=== PATIENT | male | born 2000 | race American Indian/Alaskan Native ===

== ENCOUNTER 2021-11-20 11:20 | Emergency (ER) | payer SELFPAY ==
[2021-11-20 11:37] VITALS: BP 152/79
[2021-11-20] MEDS ORDERED: oxyCODONE /ACETAMINOPHEN 5-325MG TAB PO ONE (16:46)
[2021-11-20] MEDS ORDERED: CLINDAMYCIN 300 MG CAP PO ONE (16:46)
[2021-11-20] MEDS ORDERED: SULFAMETHOXAZOLE/TRIMETHOPRIM 800/160MG DS TAB PO ONE (16:46)
[2021-11-20] MEDS ORDERED: ONDANSETRON 4 MG ODT TAB PO ONE (16:46)
[2021-11-20] MEDS ORDERED: IBUPROFEN 600 MG TAB PO ONE (16:46)
--- NOTE | 2021-11-20 19:06 | Emergency Department Report ---
ED General Adult HPI - General Chief complaint: Skin/Abscess/Foreign Body Stated complaint: RT BUTTOCKS BOIL Source: patient Mode of arrival: Ambulatory Limitations: No Limitations - History of Present Illness Initial comments: Patient is a 21-year-old -I[place] male with no past medical history who presents to the ED with complaint of acute onset persistent painful swelling mild erythematous maculopapular rash on pilonidal area of the buttocks for the last 1 week, worse in the last 3 days. Patient states that the pain has been constant and persistent and that he is unable to sit down because of worsening pain. Patient denies fever, chills, nausea, vomiting, diarrhea, dysuria, urinary frequency and urgency, testicular pain, traumatic injury, urinary or bowel incontinence or saddle paresthesia. MD Complaint: Swollen painful rash on pilonidal area -: Sudden, week(s) (1) Location: buttocks Radiation: non-radiation Severity scale (0 -10): 10 Quality: aching, sharp Consistency: constant Improves with: none Worsens with: none Associated Symptoms: denies other symptoms, rash (Painful swollen erythematous maculopapular rash on pilonidal area). denies: confusion, chest pain, cough, diaphoresis, fever/chills, headaches, loss of appetite, malaise, nausea/vomiting, weakness Treatments Prior to Arrival: none - Related Data Previous Rx's Medication Instructions Recorded Last Taken Type Permethrin 5% [Acticin 5% CREAM] 60 gm TP ONCE #1 tube 05/03/13 Unknown Rx Acetaminophen/Codeine [Tylenol 1 tab PO Q6H PRN #12 tab 11/20/21 Unknown Rx /Codeine # 3 tab] Clindamycin [Clindamycin CAP] 300 mg PO Q8H #30 cap 11/20/21 Unknown Rx Ibuprofen [Motrin] 800 mg PO Q8HR PRN #30 tablet 11/20/21 Unknown Rx Sulfamethoxazole/Trimethoprim 1 each PO Q12H #20 tab 11/20/21 Unknown Rx [Bactrim DS TAB] Allergies Allergy/AdvReac Type Severity Reaction Status Date / Time No Known Allergies Allergy Verified 11/20/21 11:37 ED Review of Systems ROS: Stated complaint: RT BUTTOCKS BOIL Other details as noted in HPI Constitutional: denies: chills, fever Eyes: denies: eye pain, eye discharge, vision change ENT: denies: ear pain, throat pain Respiratory: denies: cough, shortness of breath, wheezing Cardiovascular: denies: chest pain, palpitations Endocrine: no symptoms reported Gastrointestinal: denies: abdominal pain, nausea, diarrhea Genitourinary: denies: urgency, dysuria Musculoskeletal: denies: back pain, joint swelling, arthralgia Skin: rash (Swollen, painful erythematous maculopapular rash on pilonidal area), change in color. denies: lesions Neurological: denies: headache, weakness, paresthesias Psychiatric: denies: anxiety, depression Hematological/Lymphatic: denies: easy bleeding, easy bruising ED Past Medical Hx - Social History Smoking Status: Never Smoker Substance Use Type: None - Medications Home Medications: Home Medications Medication Instructions Recorded Confirmed Last Taken Type Permethrin 5% [Acticin 5% CREAM] 60 gm TP ONCE #1 tube 05/03/13 Unknown Rx Acetaminophen/Codeine [Tylenol 1 tab PO Q6H PRN #12 tab 11/20/21 Unknown Rx /Codeine # 3 tab] Clindamycin [Clindamycin CAP] 300 mg PO Q8H #30 cap 11/20/21 Unknown Rx Ibuprofen [Motrin] 800 mg PO Q8HR PRN #30 tablet 11/20/21 Unknown Rx Sulfamethoxazole/Trimethoprim 1 each PO Q12H #20 tab 11/20/21 Unknown Rx [Bactrim DS TAB] ED Physical Exam - General Limitations: No Limitations General appearance: alert, in no apparent distress - Head Head exam: Present: atraumatic, normocephalic, normal inspection - Eye Eye exam: Present: normal appearance, PERRL, EOMI Pupils: Present: normal accommodation - ENT ENT exam: Present: normal exam, normal orophraynx, mucous membranes moist, TM's normal bilaterally, normal external ear exam - Neck Neck exam: Present: normal inspection, full ROM - Respiratory Respiratory exam: Present: normal lung sounds bilaterally. Absent: respiratory distress, wheezes, rales, stridor, chest wall tenderness, accessory muscle use, decreased breath sounds, prolonged expiratory - Cardiovascular Cardiovascular Exam: Present: regular rate, normal rhythm, normal heart sounds. Absent: systolic murmur, diastolic murmur, rubs, gallop - GI/Abdominal GI/Abdominal exam: Present: soft, normal bowel sounds. Absent: tenderness, guarding, rebound, hyperactive bowel sounds, hypoactive bowel sounds, organomegaly, mass - Extremities Exam Extremities exam: Present: normal inspection, full ROM, normal capillary refill. Absent: tenderness, pedal edema, joint swelling - Back Exam Back exam: Present: normal inspection, full ROM. Absent: tenderness, CVA tenderness (L), muscle spasm, paraspinal tenderness, vertebral tenderness, rash noted - Neurological Exam Neurological exam: Present: alert, oriented X3, CN II-XII intact, normal gait, reflexes normal - Psychiatric Psychiatric exam: Present: normal affect, normal mood - Skin Skin exam: Present: warm, dry, intact, rash (Palpable pilonidal area tenderness due to erythematous maculopapular fluctuant rash), erythema. Absent: normal color ED Course Vital Signs 11/20/21 11:35 Temperature 98 F Pulse Rate 66 Respiratory 18 Rate Blood Pressure 152/79 [Left] O2 Sat by Pulse 96 Oximetry - I & D Sacrum Type of Procedure: Simple Site: Pilonidal area Blade Size: 11 I & D Procedure: betadine prep, sterile drapes applied, sterile dressing applied, gauze wick placed Progress: The area was cleaned extensively with normal saline and Betadine solution. Lidocaine 1% solution was used as a local anesthesia. When anesthesia was fully achieved, the wound was incised with scalpel blade #11 and thick copious yellowish-green malodorous discharge drained from the wound. Wound was then e xtensively debrided with normal saline and flocculation's were broken with a hemostat. The wound was then packed with iodoform gauze quarter inch size and the wound dressed with 4 x 4 gauze and Tegaderm. Patient tolerated procedure well. ED Medical Decision Making - Medical Decision Making This is a 21-year-old -I[place] male with no past medical history who presents to the ED with complaint of acute onset persistent painful swelling mild erythematous maculopapular rash on pilonidal area of the buttocks for the last 1 week, worse in the last 3 days. Patient states that the pain has been constant and persistent and that he is unable to sit down because of worsening pain. In the ED, patient is alert and oriented x3 and is not in any distress. Patient was treated for pain in the ED and was given initial oral antibiotics. The area was rinsed cleaned with normal saline and Betadine solution and lidocaine 1% solution in infiltrate around the area for local anesthesia. When anesthesia was fully achieved, the area was incised with the scalpel blade #11, and copious thick purulent malodorous drainage discharge drained from the area. The wound was then debrided extensively with normal saline and flocculation's were broken with hemostat. The wound was then packed with 1/4 inch iodoform gauze and dressed with 4 x 4 gauze and Tegaderm. Patient tolerated the procedure well. Patient will discharge home on pain medications and antibiotics and advised to follow-up with his primary care physician in 7 to 10 days for reevaluation. Patient was also advised to return to the ED immediately if symptoms get worse. Patient was otherwise advised return to the ED in 2 days for wound recheck and packing removal. - Differential Diagnosis Cellulitis; pilonidal abscess; acute folliculitis; Critical care attestation.: If time is entered above; I have spent that time in minutes in the direct care of this critically ill patient, excluding procedure time. ED Disposition Clinical Impression: Sacrococcygeal pilonidal cyst with abscess, Cellulitis of buttock, Pilonidal cyst with abscess Disposition: 01 HOME / SELF CARE / HOMELESS Is pt being admited?: No Does the pt Need Aspirin: No Condition: Stable Instructions: Skin Abscess, [id number], Pilonidal Cyst Drainage, Care After, Cellulitis, Adult, [id number] Additional Instructions: Take medication with food, drink plenty of fluids and follow-up with your primary care physician in 7 to 10 days for reevaluation. Return to the ED immediately if symptoms get worse. Otherwise return to the ED in 2 days for wound recheck and packing removal. Prescriptions: Sulfamethoxazole/Trimethoprim [Bactrim DS TAB] 1 each PO Q12H #20 tab Clindamycin [Clindamycin CAP] 300 mg PO Q8H #30 cap Ibuprofen [Motrin] 800 mg PO Q8HR PRN #30 tablet PRN Reason: Pain , Severe (7-10) Acetaminophen/Codeine [Tylenol /Codeine # 3 tab] 1 tab PO Q6H PRN #12 tab PRN Reason: Pain , Severe (7-10) Referrals: [facility] [Provider Group] - 7-10 days Forms: Work/School Release Form(ED) Time of Disposition: 19:16 Print Language: TANZANIAN
== END 2021-11-20 20:45 | disposition home or self-care (01) ==
LOC: ED 11:20
DX: L05.01 Pilonidal cyst with abscess (principal); L03.317 Cellulitis of buttock
CPT/HCPCS: 99282; J3490; Q0162

== ENCOUNTER 2021-11-22 13:18 | Emergency (ER) | payer SELFPAY ==
[2021-11-22 14:13] VITALS: BP 138/60
--- NOTE | 2021-11-22 16:38 | Emergency Department Report ---
ED Recheck HPI - General Chief Complaint: Wound/Laceration Stated Complaint: REMOVE PACKING Time Seen by Provider: 11/22/21 16:10 Source: patient Mode of arrival: Ambulatory Limitations: No Limitations - History of Present Illness Initial Comments: 21-year-old black male with no past medical history resents to the emergency department to have packing removed. He states that he was seen here a few days ago for an abscess that had an I&D with packing placed, and he is here to have packing removed. He states the area is less painful but still has some purulent drainage. He states that he has been taking antibiotics as previously prescribed and has not had a fever. MD Complaint: wound re-check Initial Visit For: abscess Returns Today for: wound recheck Symptoms Since Prior Visit: no new symptoms Associated Symptoms: denies: fever, chills Treatments Prior to Arrival: Given Antibiotics on, Given Pain Meds on - Related Data Previous Rx's Medication Instructions Recorded Last Taken Type Permethrin 5% [Acticin 5% CREAM] 60 gm TP ONCE #1 tube 05/03/13 Unknown Rx Acetaminophen/Codeine [Tylenol 1 tab PO Q6H PRN #12 tab 11/20/21 Unknown Rx /Codeine # 3 tab] Clindamycin [Clindamycin CAP] 300 mg PO Q8H #30 cap 11/20/21 Unknown Rx Ibuprofen [Motrin] 800 mg PO Q8HR PRN #30 tablet 11/20/21 Unknown Rx Sulfamethoxazole/Trimethoprim 1 each PO Q12H #20 tab 11/20/21 Unknown Rx [Bactrim DS TAB] Allergies Allergy/AdvReac Type Severity Reaction Status Date / Time No Known Allergies Allergy Verified 11/20/21 11:37 ED Review of Systems ROS: Stated complaint: REMOVE PACKING Other details as noted in HPI Comment: All other systems reviewed and negative Constitutional: denies: chills Respiratory: denies: shortness of breath Cardiovascular: denies: chest pain Gastrointestinal: denies: abdominal pain, nausea, vomiting Musculoskeletal: denies: back pain ED Past Medical Hx - Social History Smoking Status: Never Smoker Substance Use Type: None - Medications Home Medications: Home Medications Medication Instructions Recorded Confirmed Last Taken Type Permethrin 5% [Acticin 5% CREAM] 60 gm TP ONCE #1 tube 05/03/13 Unknown Rx Acetaminophen/Codeine [Tylenol 1 tab PO Q6H PRN #12 tab 11/20/21 Unknown Rx /Codeine # 3 tab] Clindamycin [Clindamycin CAP] 300 mg PO Q8H #30 cap 11/20/21 Unknown Rx Ibuprofen [Motrin] 800 mg PO Q8HR PRN #30 tablet 11/20/21 Unknown Rx Sulfamethoxazole/Trimethoprim 1 each PO Q12H #20 tab 11/20/21 Unknown Rx [Bactrim DS TAB] ED Physical Exam - General Limitations: No Limitations General appearance: alert, in no apparent distress - Head Head exam: Present: atraumatic, normocephalic - Eye Eye exam: Present: normal appearance. Absent: conjunctival injection - Neck Neck exam: Present: normal inspection - Respiratory Respiratory exam: Absent: respiratory distress - Cardiovascular Cardiovascular Exam: Present: regular rate - GI/Abdominal GI/Abdominal exam: Absent: distended - Extremities Exam Extremities exam: Present: normal inspection - Back Exam Back exam: Present: normal inspection - Neurological Exam Neurological exam: Present: alert, oriented X3 - Psychiatric Psychiatric exam: Present: normal affect, normal mood - Skin Skin exam: Present: warm, dry, normal color - Expanded Skin Exam Expanded 1 - Abscessed area with packing intact. Noted to have small amount of dried purulent drainage. Minimal erythema and tenderness noted. ED Course Vital Signs 11/22/21 14:09 Temperature 97.8 F Pulse Rate 62 Respiratory 16 Rate Blood Pressure 138/60 [Left] O2 Sat by Pulse 97 Oximetry - Procedure Description Procedures done: Packing removal: Packing was removed from abscess near the gluteal cleft. After packing removed, area was irrigated with saline and dry gauze applied. Patient tolerated well ED Recheck MDM - Differential Diagnosis Wound Recheck - Medical Decision Making 21-year-old black male with no past medical history resents to the emergency department to have packing removed. He states that he was seen here a few days ago for an abscess that had an I&D with packing placed, and he is here to have packing removed. He states the area is less painful but still has some purulent drainage. He states that he has been taking antibiotics as previously prescribed and has not had a fever. Abscess packing removed per my procedure note. Patient tolerated well. He was advised to continue antibiotics as previously prescribed and follow-up with his primary care provider for worsening symptoms. He was advised to return to the emergency department for any concerning symptoms. He verbalizes understanding of and agreement with plan of care. Critical care attestation.: If time is entered above; I have spent that time in minutes in the direct care of this critically ill patient, excluding procedure time. ED Disposition Clinical Impression: Abscess packing removal Disposition: 01 HOME / SELF CARE / HOMELESS Is pt being admited?: No Does the pt Need Aspirin: No Condition: Stable Instructions: How to Change Your Wound Dressing, Wound Care, Adult Additional Instructions: Complete antibiotics as previously prescribed. Follow-up with primary care provider for worsening symptoms. Return to the emergency department as needed. Referrals: LEONIDES GONZALEZ MD [Staff Physician] - 3-5 Days Forms: Work/School Release Form(ED) Time of Disposition: 16:37
== END 2021-11-22 17:51 | disposition home or self-care (01) ==
LOC: ED 13:18
DX: L02.419 Cutaneous abscess of limb, unspecified (principal)
CPT/HCPCS: 99282